=== PATIENT | female | born 1945 | race Two or more races ===

== ENCOUNTER 2018-08-22 10:58 | Outpatient (CLI) | payer OTHER ==
[~2018-08-22 10:58] MED LIST: CIPRO500 MG PO
== END 2018-08-22 11:06 | disposition home or self-care (01) ==
LOC: SONOGRAMA 10:58
DX: E04.2 Nontoxic multinodular goiter (principal)

== ENCOUNTER 2021-11-17 10:51 | Outpatient (CLI) | payer OTHER | END 2021-11-17 10:55 | disposition home or self-care (01) | LOC: SONOGRAMA 10:51 | PROVIDERS: ATTEND Pathology Anatomic Pathology & Clinical Pathology | DX: E04.2 Nontoxic multinodular goiter (principal); D34 Benign neoplasm of thyroid gland ==